=== PATIENT | male | born 1970 ===

== ENCOUNTER 2019-04-16 15:58 | Observation (INO) ==
[2019-04-16] MEDS ORDERED: POTASSIUM CHLORIDE 20 MEQ TABLET PO PRN (19:29)
[2019-04-16] MEDS ORDERED: GLUCAGON 1 MG VIAL IM PRN (19:29)
[2019-04-16] MEDS ORDERED: ONDANSETRON 4 MG/2 ML VIAL IV PRN (19:29)
[2019-04-16] MEDS ORDERED: ZALEPLON 5 MG CAPSULE PO PRN (19:29)
[2019-04-16] MEDS ORDERED: DEXTROSE 50% 25 GM/50 ML VIAL IV PRN (19:29)
[2019-04-16] MEDS ORDERED: NITROGLYCERIN SL 0.4 MG TABLET SL PRN (19:29)
[2019-04-16] MEDS ORDERED: BISACODYL 5 MG TABLET PO PRN (19:29)
[2019-04-16 22:21] LABS: Albumin 3.2 G/DL (3.4-5.0); Bilirubin,Total 0.5 MG/DL (0.2-1.0); Calcium 8.3 MG/DL (8.5-10.1); Osmolality,Calculated 284.1 MOS/KG (273-304); Risk Ratio 4.13; Total Protein 7.7 G/DL (6.4-8.3); VLDL CHOLESTEROL 25.2 MG/DL
[2019-04-16] MEDS ORDERED: ACETAMINOPHEN 325 MG TABLET PO PRN ×2 (22:27→23:57)
[2019-04-16 22:37] LABS: Troponin I < 0.015 NG/ML (0.00-0.045)
[2019-04-16 22:38] LABS: Barbiturates Screen,Urine Negative (Negative); Benzodiazepines Screen,Urine Negative (Negative); Cannabinoid Screen,Urine Negative (Negative); Opiate Screen,Urine Positive (Negative); Phencyclidine Screen,Urine Negative (Negative)
[2019-04-16] MEDS: traMADol 50 MG TABLET PO PRN (22:51)
[2019-04-17] MEDS: INSULIN REGULAR 100 UNIT/ML SUBCUT SCH ×3 (00:56→12:34)
[2019-04-17 02:02] LABS: Troponin I < 0.015 NG/ML (0.00-0.045)
[2019-04-17 04:57] LABS: Troponin I < 0.015 NG/ML (0.00-0.045)
[2019-04-17] MEDS: LOSARTAN 25 MG TABLET PO SCH (10:15)
[2019-04-17] MEDS: ASPIRIN EC 325 MG TABLET PO SCH (10:15)
[2019-04-17] MEDS: PANTOPRAZOLE 40 MG TABLET PO SCH (10:15)
[2019-04-17] MEDS: traMADol 50 MG TABLET PO PRN ×2 (10:16→15:11)
[2019-04-17] MEDS ORDERED: ATORVASTATIN 40 MG TABLET PO SCH (21:00)
[2019-04-18] MEDS ORDERED: ENOXAPARIN 40 MG/0.4 ML SYRINGE SUBCUT ONE
[2019-04-18] MEDS: INSULIN REGULAR 100 UNIT/ML SUBCUT SCH ×3 (01:10→07:32)
[2019-04-18 04:57] LABS: Basophils % 0.5 % (0.0-0.8); Eosinophils # 1.5 10*3/uL (0.0-0.87); Eosinophils % 22.6 % (0.00-10.9); Hematocrit 41.9 VOL% (42.0-52.0); Hemoglobin 14.5 GM/DL (14.0-18.0); Immature Granulocytes % 0.2 %; Immature Granulocytes Absolute 0.01 #; Lymphocytes # 2.2 10*3/uL (1.4-4.0); Lymphocytes % 34.4 % (21.2-54.2); Mean Corpuscular HGB Conc 34.6 GM/DL (32-36); Mean Corpuscular Volume 83.1 FL (87-102); Monocytes % 8.8 % (1.7-12.7); Neutrophils % 33.5 % (38.7-73.9); Platelet Count 119 T/CUMM (130-400); Red Blood Count 5.04 MC/CUMM (3.8-5.5); Red Cell Distribution Width 11.9 % (9.3-17.3); White Blood Count 6.5 T/CUMM (4-12)
[2019-04-18 05:16] LABS: Calcium 8.3 MG/DL (8.5-10.1); Osmolality,Calculated 280.8 MOS/KG (273-304)
[2019-04-18 05:36] LABS: Anisocytosis Slight; Eosinophils 21 % (0-10); Lymphocytes 37 % (20-55); Macrocytosis Slight; Platelet Estimate Decreased; Segmented Neutrophils 32 % (50-85); Total Cells Counted 100
[2019-04-18 07:33] VITALS: BP 127/83
[2019-04-18] MEDS: PANTOPRAZOLE 40 MG TABLET PO SCH (10:23)
[2019-04-18] MEDS: traMADol 50 MG TABLET PO PRN (10:23)
[2019-04-18] MEDS: ASPIRIN EC 325 MG TABLET PO SCH (10:23)
[2019-04-18] MEDS: LOSARTAN 25 MG TABLET PO SCH (10:23)
== END 2019-04-18 11:50 | disposition home or self-care (01) ==
LOC: N.2W → SUATTDRO 17:57
PROVIDERS: ADMIT Internal Medicine; ATTEND Internal Medicine

== ENCOUNTER 2021-04-12 04:40 | Observation (INO) ==
[2021-04-12 05:35] LABS: Basophils % 0.6 % (0.0-0.8); Eosinophils # 1.1 10*3/uL (0.0-0.87); Eosinophils % 21.4 % (0.00-10.9); Hematocrit 42.2 VOL% (42.0-52.0); Hemoglobin 14.5 GM/DL (14.0-18.0); Immature Granulocytes % 0.4 %; Immature Granulocytes Absolute 0.02 #; Lymphocytes # 1.7 10*3/uL (1.4-4.0); Lymphocytes % 32.7 % (21.2-54.2); Mean Corpuscular HGB Conc 34.4 GM/DL (32-36); Mean Corpuscular Volume 87.7 FL (87-102); Mean Platelet Volume 9.7 FL (9.6-12.0); Monocytes % 12.3 % (1.7-12.7); Neutrophils % 32.6 % (38.7-73.9); Platelet Count 138 T/CUMM (130-400); Red Blood Count 4.81 MC/CUMM (3.8-5.5); Red Cell Distribution Width 12.2 % (9.3-17.3); White Blood Count 5.1 T/CUMM (4-12)
[2021-04-12 05:47] LABS: Acetaminophen < 2.0 UG/ML (10-30); Alanine Aminotransferase 59 U/L (16-61); Albumin 2.8 G/DL (3.4-5.0); Alkaline Phosphatase 141 U/L (45-117); Aspartate Amino Transferase 35 U/L (0-37); Bilirubin,Total < 0.39 MG/DL (0.20-1.00); Blood Urea Nitrogen 10 MG/DL (7-18); Calcium 7.7 MG/DL (8.5-10.1); Carbon Dioxide 24 MMOL/L (21-32); Estimated Glom Filtration Rate 107 ML/MIN; Glucose 390 MG/DL (74-106); Osmolality,Calculated 289.7 MOS/KG (273-304); Potassium 3.4 MMOL/L (3.5-5.1); Salicylate < 2.8 MG/DL (2.8-20); Sodium 138 MMOL/L (136-145); Total Protein 7.6 G/DL (6.4-8.2)
[2021-04-12] MEDS ORDERED: THIAMINE INJ 100 MG, FOLIC ACID INJ 1 MG, MAGNESIUM SULF INJ 2 GM, MULTIVITAMIN INJ 10 ... IV ONE (05:51)
[2021-04-12 06:02] LABS: Barbiturates Screen,Urine Negative (Negative); Benzodiazepines Screen,Urine Negative (Negative); Cannabinoid Screen,Urine Negative (Negative); Opiate Screen,Urine Negative (Negative); Phencyclidine Screen,Urine Negative (Negative)
[2021-04-12 06:13] LABS: Eosinophils 25 % (0-10); Lymphocytes 34 % (20-55); Microcytosis 1+; Platelet Estimate Normal; Polychromasia Slight; Segmented Neutrophils 34 % (50-85); Total Cells Counted 100
[2021-04-12] MEDS ORDERED: ONDANSETRON 4 MG/2 ML VIAL IV PRN (06:21)
[2021-04-12] MEDS ORDERED: GLUCAGON 1 MG VIAL IM PRN (06:21)
[2021-04-12] MEDS ORDERED: DOCUSATE SODIUM 100 MG CAPSULE PO PRN (06:21)
[2021-04-12] MEDS ORDERED: DEXTROSE 50% 25 GM/50 ML SYRINGE IV PRN (06:21)
[2021-04-12] MEDS ORDERED: LORazepam 2 MG/1 ML VIAL IV PRN (06:35)
[2021-04-12] MEDS ORDERED: MAGNESIUM SULF RIDER 2 GM/50 ML PREMIX IV PRN (06:36)
[2021-04-12] MEDS ORDERED: MAGNESIUM SULF RIDER 4 GM/100 ML PREMIX IV PRN (06:36)
[2021-04-12] MEDS ORDERED: POTASSIUM CHLORIDE 20 MEQ TABLET PO PRN (06:36)
[2021-04-12] MEDS ORDERED: SODIUM CHLORIDE 0.9% 1,000 ML IV ONE (07:34)
[2021-04-12] MEDS: FOLIC ACID 1 MG TABLET PO SCH (08:58)
[2021-04-12] MEDS: MULTIVITAMIN (BEROCCA) TABLET PO SCH (08:58)
[2021-04-12] MEDS: ENOXAPARIN 40 MG/0.4 ML SYRINGE SUBCUT SCH (08:59)
[2021-04-12] MEDS: MUPIROCIN 2% OINT 22 GM TUBE TOP SCH ×2 (08:59→21:05)
[2021-04-12] MEDS: INSULIN LISPRO 100 UNIT/ML SUBCUT SCH ×5 (08:59→21:06)
[2021-04-12] MEDS ORDERED: INFLUENZA VIRUS VACCINE 0.5 ML SYRINGE IM ONE (09:00)
[2021-04-12] MEDS: THIAMINE 100 MG TABLET PO SCH (09:04)
[2021-04-12] MEDS ORDERED: PHENOL 1.4% THROAT SPRAY 177 ML BOTTLE PO PRN (15:58)
[2021-04-12] MEDS: SODIUM CHLORIDE 0.9% 1,000 ML IV SCH (16:57)
[2021-04-12] MEDS: ACETAMINOPHEN 325 MG TABLET PO PRN ×2 (19:02→23:07)
[2021-04-13] MEDS: SODIUM CHLORIDE 0.9% 1,000 ML IV SCH ×2 (00:32→08:38)
[2021-04-13] MEDS: ACETAMINOPHEN 325 MG TABLET PO PRN ×2 (03:09→09:06)
[2021-04-13 05:10] LABS: Basophils % 0.5 % (0.0-0.8); Eosinophils % 12.1 % (0.00-10.9); Hematocrit 39.2 VOL% (42.0-52.0); Hemoglobin 13.2 GM/DL (14.0-18.0); Immature Granulocytes % 0.4 %; Immature Granulocytes Absolute 0.03 #; Lymphocytes # 1.5 10*3/uL (1.4-4.0); Lymphocytes % 18.8 % (21.2-54.2); Mean Corpuscular HGB Conc 33.7 GM/DL (32-36); Mean Corpuscular Volume 89.5 FL (87-102); Mean Platelet Volume 10.2 FL (9.6-12.0); Monocytes % 14.2 % (1.7-12.7); Platelet Count 123 T/CUMM (130-400); Red Blood Count 4.38 MC/CUMM (3.8-5.5); Red Cell Distribution Width 12.5 % (9.3-17.3); White Blood Count 7.9 T/CUMM (4-12)
[2021-04-13 05:35] LABS: Albumin 2.3 G/DL (3.4-5.0); Bilirubin,Total 0.7 MG/DL (0.20-1.00); Calcium 7.2 MG/DL (8.5-10.1); Osmolality,Calculated 277.7 MOS/KG (273-304); Potassium 3.5 MMOL/L (3.5-5.1); Total Protein 6.5 G/DL (6.4-8.2)
[2021-04-13 05:52] LABS: Band Neutrophils 2 % (0-10); Eosinophils 13 % (0-10); Lymphocytes 15 % (20-55); Platelet Estimate Adequate; Segmented Neutrophils 56 % (50-85); Total Cells Counted 100
[2021-04-13] MEDS ORDERED: metFORMIN 500 MG TABLET PO SCH (09:00)
[2021-04-13] MEDS ORDERED: amLODIPine 10 MG TABLET PO SCH (09:00)
[2021-04-13] MEDS: THIAMINE 100 MG TABLET PO SCH (09:05)
[2021-04-13] MEDS: FOLIC ACID 1 MG TABLET PO SCH (09:05)
[2021-04-13] MEDS: MULTIVITAMIN (BEROCCA) TABLET PO SCH (09:05)
[2021-04-13] MEDS: MUPIROCIN 2% OINT 22 GM TUBE TOP SCH (09:06)
[2021-04-13] MEDS: INSULIN LISPRO 100 UNIT/ML SUBCUT SCH ×2 (10:54→13:05)
[2021-04-13] MEDS: ENOXAPARIN 40 MG/0.4 ML SYRINGE SUBCUT SCH (10:54)
[2021-04-13 16:06] VITALS: BP 129/80
== END 2021-04-13 16:12 ==
LOC: EDUNIT# → EDBD → N.EDINP 04:40 → N.ED 04:40 → N.EDINP 06:49 → N.3E 07:01
PROVIDERS: ADMIT Internal Medicine; ATTEND Internal Medicine